=== PATIENT | female | born 2000 | race Caucasian/White ===

== ENCOUNTER → 2020-02-01 16:12 | Outpatient (BNVA) | payer BC, SELFPAY | PROVIDERS: Family Provider Family Medicine; Visit Provider Nurse Practitioner | DX: R10.9 Unspecified abdominal pain (principal) | CPT/HCPCS: 81000 ==

== ENCOUNTER → 2020-04-12 16:16 | Outpatient (BNVA) | payer BC, SELFPAY | PROVIDERS: Family Provider Family Medicine; Visit Provider Nurse Practitioner Women's Health | DX: Z11.3 Encounter for screening for infections with a predominantly sexual mode of transmission (principal); N76.0 Acute vaginitis; B96.89 Other specified bacterial agents as the cause of diseases classified elsewhere | CPT/HCPCS: 87491; 87591; 87661 ==

== ENCOUNTER 2021-05-25 14:14 | Emergency (ER) | payer BC, SELFPAY ==
[2021-05-25 15:47] VITALS: BP 128/75; PULSE 84; RESP 16; TEMP 36.9; O2SAT 100; BMI 18.8
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
[2021-05-25 16:54] VITALS: BP 110/65; PULSE 87; RESP 14; O2SAT 98
--- NOTE | 2021-05-25 17:04 | PC.NURSE ---
REVIEWED DISCHARGE INSTRUCTIONS WITH PATIENT, SHE VERBALIZES UNDERSTANDING OF ALL INSTRUCTIONS AND NEED FOR FOLLOW UP, PATIENT AMBULATED FROM THE ED
== END 2021-05-25 17:05 | disposition home or self-care (01) ==
PROVIDERS: Emergency Provider Physician Assistant
DX: S16.1XXA Strain of muscle, fascia and tendon at neck level, initial encounter (principal); F17.290 Nicotine dependence, other tobacco product, uncomplicated; V89.2XXA Person injured in unspecified motor-vehicle accident, traffic, initial encounter
CPT/HCPCS: 72040; 72072; 99282

== ENCOUNTER 2023-02-17 20:54 | Inpatient (IN) | payer BC, MEDICAID, SELFPAY ==
[2023-02-17] VITALS (11 sets, daily range): BP systolic 105–127; BP diastolic 63–69; PULSE 71–99; RESP 15; TEMP 36.6; BMI 25.3
[2023-02-17 21:30] LABS: Basophils % 0.3 %; Eosinophils # 0.1 10^3/uL (0.0-0.8); Eosinophils % 0.6 %; Hematocrit 36.1 % (36-47); Lymphocytes % 17.6 %; Mean Corpuscular HGB Conc 31.6 g/dL (30-55); Mean Corpuscular Volume 82.4 fl (85-98); Mean Platelet Volume 10.2 fL (7.4-10.4); Neutrophils # 8.14 10^3/uL (1.8-7.7); Nucleated Red Blood Cells % 0 %; Platelet Count 350 10^3/cmm (157-399); Red Blood Count 4.38 10^6/uL (3.85-5.65); White Blood Count 11.46 10^3/uL (3.29-11.43)
[2023-02-17] MEDS: miSOPROStol 100 mcg tablet 25 MCG VAGINAL (21:54)
[2023-02-18] VITALS (51 sets, daily range): BP systolic 92–175; BP diastolic 55–90; PULSE 57–148; RESP 14–18; TEMP 36.3–36.9; O2SAT 89–100
[2023-02-18] MEDS: lactated ringers 1,000 ML 999 ML IV ×2 (01:20→02:21)
--- NOTE | 2023-02-18 02:25 | ANES.PREANE2 ---
Pre-Anesthetic Assessment Height/Weight: Height 1.6 m Weight 64.864 kg Temp Pulse Resp BP O2 Del Method 97.5 F L 87 15 105/56 Room Air 02/18/23 02:01 02/18/23 01:54 02/17/23 20:55 02/18/23 01:54 02/17/23 20:57 Preop Diagnosis: labor epidural Familial anesthetic complications: none Was Beta Gisele taken within 24 hours: N/A Was Clonidine taken within 24 hours: N/A Last Intake: 20:40 Social No alcohol and No tobacco Exam alert, oriented x 3, clear to auscultation bilaterally and regular rate & rhythm Airway Submandibular: within normal limits Cervical ROM: within normal limits Mallampati: Class II Dentition: full Pulmonary None reported CV/HEM None reported None reported Hepatic None reported GI None reported Metabolic None reported Musc/skel Lower Back Pain and Scoliosis Neuropsych None reported Anesthetic Plan ASA status: 2 Anesthesia: Regional (specify below) (epidural) Risk of > 500 ml blood loss (7ml/kg in children): No Medications/Allergies Home Medications Medication Instructions Recorded Confirmed Last Taken Type metronidazole 500 mg tablet 500 mg PO BID #14 tabs 04/12/20 04/12/20 Unknown Rx Allergies Allergy/AdvReac Type Severity Reaction Status Date / Time No Known Allergies Allergy Verified 04/12/20 14:58 Current Medications Generic Name Dose Route Start Last Admin Trade Name Freq PRN Reason Stop Dose Admin Lactated Ringer's 1,000 mls @ 999 mls/hr 02/18/23 01:10 02/18/23 02:21 Lactated Ringers IV 999 mls/hr .Q1H1M PRN Administration See label comments [facility] Anesthesia Medical History (Updated 06/02/21 @ 00:00 by LEILA Schwartz) No pertinent past medical history neghx: htn,dm,thyroid,dvt/pe Surgical History (Updated 04/12/20 @ 16:09 by Stephanie Sheppard APN, ARIADNA) No pertinent past surgical history Family History Family/Other Ovarian cancer Maternal Great Grandmother---dx age unknown Father Hypertension Denies family history of Colon cancer Diabetes Heart disease Hypercholesteremia Breast cancer Uterine cancer Thyroid disease Stroke Social History Additional social history: - Tobacco use: currently vapes Alcohol use: socially- once per week Drug use: denies Female Reproductive History : 1 Data Anesthesia 02/17/23 21:15 Short CBC 02/17/23 Range/Units 21:15 WBC 11.46 H (3.29-11.43) 10^3/uL Hgb 11.40 (11.27-16.99) g/dL Hct 36.1 (36-47) % MCV 82.4 L (85-98) fl Plt Count 350 (157-399) 10^3/cmm Neut % (Auto) 71.0 % Neut # (Auto) 8.14 H (1.8-7.7) 10^3/uL Blood Bank 02/17/23 21:15 Blood Type B Positive Rho(D) Type Positive Antibody Screen Negative Cardiac Studies: No Data to Display
[2023-02-18] MEDS: ROPivacaine syringe 100 MG/50 ML SYRINGE 10 MG EPIDURAL (02:50)
--- NOTE | 2023-02-18 03:02 | ANES.PROC ---
Anesthesia Procedures Procedure/Date: 02/18/23 Epidural: Time Out Performed: Yes Consents Signed: Procedure Consent and NPO Consent Consent: requested by attending/covering physician, from patient, risks and benefits reviewed, patient agrees to proceed and emergency procedure Lumbar Level: L3-L4 Epidural position: sitting Epidural procedure: sterile prep of area (betadine), 1% lidocaine to numb the area (3ml), 18 g needle, neg for paresthesia, test dose given, 1.5% xylocaine 1:200k epi (3ml/2ml), 0.2% Ropivacaine bolus ml (5ml), placed PCEA, no systemic response, sterile dressing applied, L.U.D. no apparent complications and 0.2% Ropiavacaine @ mls/hr (10ml/hr)
[2023-02-18] MEDS: dextrose 5%-lactated ringers 1,000 ML 125 ML IV (03:24)
[2023-02-18] MEDS: oxytocin 30 UNIT/500 ML BAG 600 UNIT IV (04:54)
--- NOTE | 2023-02-18 05:17 | PM.OPHPUD ---
Labor & Delivery H&P Update Date of Procedure: February 18, 2023 Date H&P Performed: 02/14/23 Admission Diagnosis: IUP at 40 weeks 4 days gestation Preop diagnosis: labor Planned procedure: Induction of labor and delivery
--- NOTE | 2023-02-18 05:17 | PM.DELIVERY ---
Delivery Note: Date of delivery: February 18, 2023 Pre-Delivery Course: The patient had routine care at [facility]. There were no complications during the . labs: Blood type B+, antibody negative, rubella immune, hepatitis B nonreactive, hepatitis C nonreactive, HIV nonreactive, GC chlamydia negative, RPR nonreactive, UDS negative, she passed her glucose tolerance test, GBS negative. Delivery: This is a 23-year-old at 40 weeks 4 days gestation who was admitted for a postdate induction. Her cervix was not favorable and she was started on Cytotec. The 1 dose of Cytotec put her into active labor. She had spontaneous rupture of membranes with clear fluid. Rupture of membranes was approximately 4 hours prior to delivery. She received an epidural for pain management. She had a normal spontaneous vaginal delivery of a viable female infant weight 3270 g, 7 pounds 3 ounces, Apgars 8 and 9 over an intact perineum. The was suctioned at delivery and placed on the mother's chest. The cord was clamped and cut. There was a very small second-degree perineal laceration that was sutured using 3-0 chromic. There was an irregular second-degree labial laceration on the right that was sutured using 3-0 chromic. Mother and were doing well after delivery. Estimated blood loss 200 mL History History History 0 Term Miscarriages/Ectopic Living Children Coding Level of Care Code Acute Code for Chg Fwd Diagnoses
[2023-02-18] MEDS: benzocaine-menthol 78 gm Canister 1 SPRAY TOPICAL (06:39)
[2023-02-18] MEDS: lanolin oint 7 gm 1 APPLIC TOPICAL (06:39)
--- NOTE | 2023-02-18 07:00 | PC.NURSE ---
This nurse observing and precepting all patient care and medication administration performed by SN Awilda
[2023-02-18] MEDS: ibuprofen 800 mg tablet PO ×3 (08:26→20:45)
[2023-02-18] MEDS: prenatal vitamin Capsule 1 CAP PO (08:26)
[2023-02-18] MEDS: docusate sodium 100 mg Capsule PO ×2 (08:26→17:39)
[2023-02-18 15:58] LABS: Hematocrit 34.7 % (36-47); Mean Corpuscular HGB Conc 30.8 g/dL (30-55); Mean Corpuscular Hemoglobin 25.7 pg (27-33); Mean Corpuscular Volume 83.2 fl (85-98); Mean Platelet Volume 10.5 fL (7.4-10.4); Platelet Count 320 10^3/cmm (157-399); Red Blood Count 4.17 10^6/uL (3.85-5.65); Red Cell Distribution Width 15.3 % (12.1-15.1); White Blood Count 16.24 10^3/uL (3.29-11.43)
[2023-02-19 05:00] VITALS: BP 105/67; PULSE 76; RESP 18; TEMP 36.9; O2SAT 98
--- NOTE | 2023-02-19 08:00 | ANE.PACU2 ---
Inpatient post-anesthesia follow up: Airway intact: Yes Vital signs: Temperature 98.2 F Pulse Rate 82 Respiratory Rate 16 Blood Pressure 103/72 Pulse Oximetry 98 Oxygen Delivery Me thod Room Air Oxygen Flow Rate Fraction of Inspir ed Oxygen Hydration adequate: Yes Nausea and vomiting: No Pain level: 1 Mental status: Baseline
[2023-02-19] MEDS: docusate sodium 100 mg Capsule PO (09:09)
[2023-02-19] MEDS: prenatal vitamin Capsule 1 CAP PO (09:09)
[2023-02-19] MEDS: ibuprofen 800 mg tablet PO (09:09)
--- NOTE | 2023-02-19 13:06 | PM.DCS ---
Discharge Providers Date of Admission: 02/17/23 20:54 Date of Discharge: February 19, 2023 Attending Provider at Admission: Janae Walker MD Attending Provider at Discharge: Janae Walker MD Primary Care Provider: Janae Walker MD Reason for Visit Reason for Visit: Induction of Labor Hospital Course Hospital Course This is a 23-year-old G1 now P1 who was admitted for postdate induction at 40 weeks 4 days gestation. She delivered a viable female at 40 weeks 5 days gestation via normal spontaneous vaginal delivery. She has done well . She is ambulating, tolerating a regular diet, has average vaginal bleeding and is comfortable with discharge home Physical Exam Narrative: Alert and oriented, sitting up in bed, heart regular rate and rhythm, lungs clear to auscultation, abdomen is soft and nontender, fundus is firm and U -3, extremities have no calf tenderness and trace edema Discharge Data Studies Completed and Pending Laboratory Results WBC 16.24 10^3/uL (3.29-11.43) H 02/18/23 15:20 RBC 4.17 10^6/uL (3.85-5.65) 02/18/23 15:20 Hgb 10.70 g/dL (11.27-16.99) L 02/18/23 15:20 Hct 34.7 % (36-47) L 02/18/23 15:20 MCV 83.2 fl (85-98) L 02/18/23 15:20 MCH 25.7 pg (27-33) L 02/18/23 15:20 MCHC 30.8 g/dL (30-55) 02/18/23 15:20 RDW 15.3 % (12.1-15.1) H 02/18/23 15:20 Plt Count 320 10^3/cmm (157-399) 02/18/23 15:20 MPV 10.5 fL (7.4-10.4) H 02/18/23 15:20 Neut % (Auto) 71.0 % 02/17/23 21:15 Lymph % (Auto) 17.6 % 02/17/23 21:15 [place] % (Auto) 9.0 % 02/17/23 21:15 Eos % (Auto) 0.6 % 02/17/23 21:15 Baso % (Auto) 0.3 % 02/17/23 21:15 Neut # (Auto) 8.14 10^3/uL (1.8-7.7) H 02/17/23 21:15 Lymph # (Auto) 2.0 10^3/uL (0.8-4.8) 02/17/23 21:15 [place] # (Auto) 1.0 10^3/uL (0.2-0.9) H 02/17/23 21:15 Eos # (Auto) 0.1 10^3/uL (0.0-0.8) 02/17/23 21:15 Baso # (Auto) 0.0 10^3/uL (0.0-0.1) 02/17/23 21:15 Nucleated RBC % (auto) 0 % 02/17/23 21:15 Nucleated RBCs # 0.0 /100WBC 02/17/23 21:15 Blood Type B Positive 02/17/23 21:15 Rho(D) Type Positive 02/17/23 21:15 Antibody Screen Negative 02/17/23 21:15 Vitals Last Vital Signs Temp 98.4 F 02/19/23 05:00 Pulse 76 02/19/23 05:00 Resp 18 02/19/23 05:00 BP 105/67 02/19/23 05:00 Pulse Ox 98 02/19/23 05:00 O2 Del Method Room Air 02/19/23 05:00 Discharge Plan Discharge Patient Disposition: Home Condition: Stable Prescriptions: Discontinued metronidazole 500 mg tablet 500 mg PO BID Qty: 14 0RF Discharge Orders: Discharge Order (Routine); Ordered 02/19/23 Ordered By: Janae Walker Referrals: Janae Walker MD [Primary Care Provider] - 1 month Discharge Diet: Usual diet Discharge Activity: Limit activity as instructed Patient Instructions: Opioid Safety Activity Restrictions/Additional Instructions: nothing per vagina for 6 weeks Discharge Attestations Time Spent in Discharge Care*: less than 30 min Quality Metrics Clinical Quality Measures [ No reported AMI, CVA or VTE this stay] Coding Level of Care Code Acute Code for Chg Fwd Diagnoses
[2023-02-19 18:30] VITALS: BP 103/72; PULSE 82; RESP 16; TEMP 36.8; O2SAT 98
== END 2023-02-19 18:30 | disposition home or self-care (01) | DRG 807 ==
LOC: OPOB 02-18 07:10 → OBGYN 02-18 07:10
PROVIDERS: Admitting Provider Family Medicine; PCP Family Medicine; Visit Provider Family Medicine
DX: O48.0 Post-term pregnancy (principal); Z37.0 Single live birth; Z3A.40 40 weeks gestation of pregnancy; O70.1 Second degree perineal laceration during delivery
CPT/HCPCS: 36415; 59025; 59409; 85025; 85027; 86850; 86900; 98960; J2590; J2795; J7120; J7121

== ENCOUNTER 2025-02-01 17:10 | Outpatient (CLI) | payer BC, MEDICAID, SELFPAY ==
[2025-02-01 17:12] VITALS: RESP 16
[2025-02-01 17:18] VITALS: BP 121/65; PULSE 85
[2025-02-01 17:33] VITALS: BP 113/58; PULSE 78
[2025-02-01 17:48] VITALS: BP 118/69; PULSE 103
[2025-02-01 18:03] VITALS: BP 117/60; PULSE 84
[2025-02-01 18:06] VITALS: BP 117/84; PULSE 84; RESP 16
== END 2025-02-01 18:06 | disposition home or self-care (01) ==
LOC: OPOB 17:11 → OBGYN 17:11
PROVIDERS: PCP Family Medicine; Visit Provider Family Medicine
DX: O36.5990 Maternal care for other known or suspected poor fetal growth, unspecified trimester, not applicable or unspecified (principal); Z3A.00 Weeks of gestation of pregnancy not specified
CPT/HCPCS: 59025; 99211

== ENCOUNTER 2025-03-01 20:47 | Inpatient (IN) | payer BC, MEDICAID, SELFPAY ==
[2025-03-01] VITALS (49 sets, daily range): BP systolic 70–138; BP diastolic 36–83; PULSE 66–122; TEMP 36.7; O2SAT 95–100; BMI 24.4
[2025-03-01 21:05] LABS: Hematocrit 34.4 % (36-47); Hemoglobin 10.50 g/dL (11.27-16.99); Mean Corpuscular HGB Conc 30.5 g/dL (30-55); Mean Corpuscular Hemoglobin 21.8 pg (27-33); Mean Corpuscular Volume 71.5 fl (85-98); Nucleated Red Blood Cells % 0 %; Platelet Count 372 10^3/cmm (157-399); Red Blood Count 4.81 10^6/uL (3.85-5.65); White Blood Count 11.82 10^3/uL (3.29-11.43)
[2025-03-01] MEDS: ROPivacaine premix 200 MG/100 ML PREMIX 10 MG EPIDURAL (22:08)
--- NOTE | 2025-03-01 22:14 | ANES.PREANE2 ---
Pre-Anesthetic Assessment Height/Weight: Height 1.6 m Weight 62.142 kg Temp Pulse BP Pulse Ox O2 Del Method 98.1 F 110 H 90/60 98 Room Air 03/01/25 21:06 03/01/25 22:11 03/01/25 22:11 03/01/25 22:11 03/01/25 20:48 Epidural Familial anesthetic complications: none Was Beta Gisele taken within 24 hours: N/A Was Clonidine taken within 24 hours: N/A Exam alert, oriented x 3, clear to auscultation bilaterally and regular rate & rhythm Musc/el scoliosis Anesthetic Plan ASA status: 2 Anesthesia: Regional (specify below) Risk of > 500 ml blood loss (7ml/kg in children): Yes, adequate IV access and fluids planned Other Pertinent Information Discussed with patient she is far dilated and may not get much relief from epidural given proximity to second stage. She desired to continue with placement of epidural. Medications/Allergies Home Medications ?Medication ?Instructions ?Recorded ?Confirmed ?Last Taken ?Type ferrous sulfate 325 tab PO DAILY 03/01/25 03/01/25 2 Days Ago History ~02/27/25 pimecrolimus 1 % topical cream See Rx Instructions .Route 03/01/25 03/01/25 Unknown History .COMPLEX PRN eczema triamcinolone acetonide 0.1 % See Rx Instructions .Route 03/01/25 03/01/25 Unknown History topical ointment .COMPLEX PRN eczema Allergies Allergy/AdvReac Type Severity Reaction Status Date / Time No Known Allergies Allergy Verified 03/01/25 21:01 Current Medications Generic Name Dose Route Start Last Admin Trade Name Freq PRN Reason Stop Dose Admin Ropivacaine 200 mg in 100 mls @ 10 mls/hr 03/01/25 21:00 03/01/25 22:08 Naropin Premix EPIDURAL 10 mls/hr .Q10H BEBE Administration Sodium Chloride 1,000 mls @ 999 mls/hr 03/01/25 20:48 03/01/25 21:10 Sodium Chloride 0.9% IV 999 mls/hr .Q1H1M PRN Administration See label comments PFSH Anesthesia Medical History (Updated 06/02/21 @ 00:00 by LEILA Schwartz) No pertinent past medical history neghx: htn,dm,thyroid,dvt/pe Surgical History (Updated 04/12/20 @ 16:09 by Stephanie Sheppard APN, WHNP) No pertinent past surgical history Family History Family/Other Ovarian cancer Maternal Great Grandmother---dx age unknown Father Hypertension Denies family history of Colon cancer Diabetes Heart disease Hypercholesteremia Breast cancer Uterine cancer Thyroid disease Stroke Social History Smoking and tobacco/nicotine status: never used tobacco/nicotine Additional social history: - Tobacco use: currently vapes Alcohol use: socially- once per week Drug use: denies Female Reproductive History : 2 Data Anesthesia 03/01/25 20:55 Short CBC 03/01/25 Range/Units 20:55 WBC 11.82 H (3.29-11.43) 10^3/uL Hgb 10.50 L (11.27-16.99) g/dL Hct 34.4 L (36-47) % MCV 71.5 L (85-98) fl Plt Count 372 (157-399) 10^3/cmm Neut % (Auto) 78.8 % Neut # (Auto) 9.31 H (1.8-7.7) 10^3/uL Blood Bank 03/01/25 20:55 Blood Type B Positive Rho(D) Type Rh positive Antibody Screen Negative Anesthesia Procedures Epidural Time Out Performed: Yes Consents Signed: Procedure Consent Consent: requested by attending/covering physician, from patient, from other, risks and benefits reviewed and patient agrees to proceed Lumbar Level: L3-L4 Epidural position: sitting Epidural procedure: sterile prep of area, 1% lidocaine to numb the area, 18 g needle, negative for paresthesia passed, neg for paresthesia, test dose given, 1.5% xylocaine 1:200k epi (5), 0.2% Ropivacaine bolus ml (5), placed PCEA, no systemic response, sterile dressing applied, L.U.D. no apparent complications and 0.2% Ropiavacaine @ mls/hr Additional Comments: ABBY at 3.5 cm, threaded to 10 cm
[2025-03-02] VITALS (99 sets, daily range): BP systolic 80–181; BP diastolic 48–135; PULSE 64–111; RESP 16–18; TEMP 35.9–37; O2SAT 97–100; BMI 24.4
--- NOTE | 2025-03-02 01:22 | PM.MISC ---
Miscellaneous Note Note: Called to patient room due to complaints of pain. 100mcg fentanyl given via epidural. Negative aspiration for CSF and blood. Patient states some pain relief.
--- NOTE | 2025-03-02 02:59 | PM.OPHPUD ---
Labor & Delivery H&P Update Date of Procedure: March 02, 2025 Date H&P Performed: 02/16/25 Admission Diagnosis: IUP at 40 weeks gestation in active labor Primary indication for procedure: Expectant management of labor and delivery
--- NOTE | 2025-03-02 03:00 | PM.DELIVERY ---
Delivery Note: Date of delivery: March 02, 2025 Procedure: Normal spontaneous vaginal delivery Delivering Physician: Janae Walker MD Estimated blood loss (mL): 275 Pre-Delivery Course: The patient had routine care at [facility]. There were no complications during the though the patient had extreme eczema flare and was seen by dermatology. labs blood type B+ antibody negative, hepatitis B nonreactive, hepatitis C nonreactive, HIV nonreactive, rubella immune, GC negative, chlamydia positive with test of cure negative, RPR nonreactive, UDS negative, she passed her glucose tolerance test, she was GBS negative. Delivery: This is a 25-year-old G2, P1 at 40 weeks gestation who presented to the labor and delivery in active labor. She received an epidural for pain management and her labor progressed well on its own. When she was complete and +1 she underwent artificial rupture of membranes with clear fluid. She only had to push through 2-3 contractions to have a normal spontaneous vaginal delivery of a viable male infant weight 3420 g, Apgars 8 and 9 over an intact perineum. The infant was suctioned at delivery and placed on the mother's chest. The cord was clamped and cut. The placenta was delivered grossly intact and normal to inspection. There was a first-degree laceration that was sutured using 3-0 chromic. Mother and infant were doing well after delivery. History History History 2 Term 2 Miscarriages/Ectopic Living Children 2 A&P Assessment and plan 1. Normal spontaneous vaginal delivery: PDMP PDMP Reviewed: Not Reviewed Coding Level of Care Code Acute Code for Chg Fwd Diagnoses Normal spontaneous vaginal delivery O80
[2025-03-02] MEDS: benzocaine-menthol 78 gm Canister 1 SPRAY TOPICAL (03:57)
[2025-03-02] MEDS: PRENATAL VIT NO.130/IRON/FOLIC 1 EACH TABLET PO (03:58)
[2025-03-02 17:38] LABS: Hematocrit 31.0 % (36-47); Hemoglobin 9.40 g/dL (11.27-16.99); Mean Corpuscular HGB Conc 30.3 g/dL (30-55); Mean Corpuscular Hemoglobin 22.6 pg (27-33); Mean Corpuscular Volume 74.5 fl (85-98); Platelet Count 383 10^3/cmm (157-399); Red Blood Count 4.16 10^6/uL (3.85-5.65); White Blood Count 14.16 10^3/uL (3.29-11.43)
[2025-03-03 03:30] VITALS: BP 106/70; PULSE 80; RESP 15; TEMP 36.8; O2SAT 99
[2025-03-03] MEDS: PRENATAL VIT NO.130/IRON/FOLIC 1 EACH TABLET PO (05:08)
[2025-03-03 10:00] VITALS: BP 104/53; PULSE 70; RESP 16; TEMP 36.5; O2SAT 99
--- NOTE | 2025-03-03 12:46 | P.PN_ITS ---
Subjective 2 Subjective: She is doing well . She has had no significant cramping. Her bleeding is not very heavy. She is ambulating and tolerating a regular diet Vitals/I&O/Wt Last Vital Signs Temp 97.7 F 03/03/25 10:00 Pulse 70 03/03/25 10:00 Resp 16 03/03/25 10:00 BP 104/53 03/03/25 10:00 Pulse Ox 99 03/03/25 10:00 O2 Del Method Room Air 03/03/25 10:00 Weight last 48 hrs Weight 62.596 kg Weight 62.142 kg Weight 62.596 kg Physical Exam 2 Narrative: Alert and oriented, heart regular rate and rhythm, lungs clear to auscultation bilaterally, abdomen is soft and nontender, fundus is firm and U- 3, extremities have trace edema no calf tenderness Urinary Catheter Management: Rivas: Cath Placed During This Visit: yes, but has since been removed by the nurse Reason for Continuing Indwelling Catheter: Decision to DC Catheter Urinary Catheter Date of Insertion: 03/01/25 Urinary Catheter Time of Insertion: 22:40 Date Urinary Catheter Removed: 03/02/25 Time Urinary Catheter Discontinued: 02:15 Data 03/02/25 16:05 A&P Assessment and plan 1. Normal spontaneous vaginal delivery: Infant is being kept until tomorrow so we will keep mom inpatient for 1 more night. PDMP PDMP Reviewed: Not Reviewed Attestations 2 Medical Necessity Statement*: Routine care Coding Level of Care Code Acute Code for Chg Fwd Diagnoses Normal spontaneous vaginal delivery O80
[2025-03-03 16:10] VITALS: BP 107/70; PULSE 81; RESP 16; TEMP 36.5; O2SAT 97
[2025-03-03 22:10] VITALS: BP 107/70; PULSE 17
[2025-03-04 06:38] VITALS: PULSE 140; RESP 55; TEMP 36.7
[2025-03-04] MEDS: PRENATAL VIT NO.130/IRON/FOLIC 1 EACH TABLET PO (06:38)
[2025-03-04 06:40] VITALS: BP 99/63; PULSE 59; RESP 17; O2SAT 99
[2025-03-04 09:00] VITALS: BP 99/63; PULSE 80; RESP 16; TEMP 36.6
--- NOTE | 2025-03-04 12:26 | P.DS_ITS ---
Discharge Providers Date of Admission: 03/01/25 20:47 Date of Discharge: March 04, 2025 Attending Provider at Admission: Janae Walker MD Attending Provider at Discharge: Janae Walker MD Primary Care Provider: Janae Walker MD Diagnoses at Discharge Discharge Diagnosis 1. Normal spontaneous vaginal delivery: Reason for Visit Reason for Visit: Contractions Hospital Course Hospital Course This is a 25-year-old G2 now P2 who had a normal spontaneous vaginal delivery of a viable male infant. Mother and infant have done well after delivery. Physical Exam Narrative: Alert and oriented, sitting up in bed with the , heart regular rate and rhythm, lungs clear to auscultation bilaterally, abdomen is soft and nontender, fundus is firm, extremities have no calf tenderness and no edema. Urinary Catheter Management: Rivas: Cath Placed During This Visit: yes, but has since been removed by the nurse Reason for Continuing Indwelling Catheter: Decision to DC Catheter Urinary Catheter Date of Insertion: 03/01/25 Urinary Catheter Time of Insertion: 22:40 Date Urinary Catheter Removed: 03/02/25 Time Urinary Catheter Discontinued: 02:15 Discharge Data Studies Completed and Pending Laboratory Results WBC 14.16 10^3/uL (3.29-11.43) H 03/02/25 16:05 RBC 4.16 10^6/uL (3.85-5.65) 03/02/25 16:05 Hgb 9.40 g/dL (11.27-16.99) L 03/02/25 16:05 Hct 31.0 % (36-47) L 03/02/25 16:05 MCV 74.5 fl (85-98) L 03/02/25 16:05 MCH 22.6 pg (27-33) L 03/02/25 16:05 MCHC 30.3 g/dL (30-55) 03/02/25 16:05 RDW 22.0 % (12.1-15.1) H 03/02/25 16:05 Plt Count 383 10^3/cmm (157-399) 03/02/25 16:05 MPV 12.0 fL (7.4-10.4) H 03/02/25 16:05 Neut % (Auto) 78.8 % 03/01/25 20:55 Lymph % (Auto) 12.4 % 03/01/25 20:55 [place] % (Auto) 7.1 % 03/01/25 20:55 Eos % (Auto) 0.6 % 03/01/25 20:55 Baso % (Auto) 0.3 % 03/01/25 20:55 Neut # (Auto) 9.31 10^3/uL (1.8-7.7) H 03/01/25 20:55 Lymph # (Auto) 1.5 10^3/uL (0.8-4.8) 03/01/25 20:55 [place] # (Auto) 0.8 10^3/uL (0.2-0.9) 03/01/25 20:55 Eos # (Auto) 0.1 10^3/uL (0.0-0.8) 03/01/25 20:55 Baso # (Auto) 0.0 10^3/uL (0.0-0.1) 03/01/25 20:55 Nucleated RBC % (auto) 0 % 03/01/25 20:55 Nucleated RBCs # 0.0 /100WBC 03/01/25 20:55 Blood Type B Positive 03/01/25 20:55 Rho(D) Type Rh positive 03/01/25 20:55 Antibody Screen Negative 03/01/25 20:55 Vitals Last Vital Signs Temp 97.9 F 03/04/25 09:00 Pulse 80 03/04/25 09:00 Resp 16 03/04/25 09:00 BP 99/63 03/04/25 09:00 Pulse Ox 99 03/04/25 06:40 O2 Del Method Room Air 03/04/25 06:40 Discharge Plan Discharge Patient Disposition: Home Condition: Stable Prescriptions: Continued pimecrolimus 1 % cream See Rx Instructions .ROUTE .COMPLEX PRN (Reason: eczema) Rx Instructions: apply to irritated areas on face and neck twice daily as needed triamcinolone acetonide 0.1 % ointment See Rx Instructions .ROUTE .COMPLEX PRN (Reason: eczema) Rx Instructions: Apply to affected area twice a day as needed ferrous sulfate tablet 325 tab PO DAILY Discharge Order = DC NOW: Discharge Order (Routine); Ordered 03/04/25 Ordered By: Janae Walker Referrals: Janae Walker MD [Primary Care Provider, [facility]] - 03/24/25 3:00 pm Discharge Diet: Usual diet Discharge Activity: Limit activity as instructed Patient Instructions: Depression (DC), Bleeding (DC), Preeclampsia and Eclampsia After Delivery (GEN), OB Discharge Report, OB Food/Drug Interaction Guide, OB Care at Home, Opioid Safety, OB Home Care, OB Vaginal Deliveries, Patient Portal & Dario Instructions Activity Restrictions/Additional Instructions: Nothing per vagina for 6 weeks Discharge Attestations Time Spent in Discharge Care*: less than 30 min Quality Metrics Clinical Quality Measures [ No reported AMI, CVA or VTE this stay] Coding Level of Care Code Acute Code for Chg Fwd Diagnoses Normal spontaneous vaginal delivery O80
--- NOTE | 2025-03-04 12:59 | ANE.PACU2 ---
Inpatient post-anesthesia follow up: Airway intact: Yes Vital signs: Temperature 97.9 F Pulse Rate 80 Respiratory Rate 16 Blood Pressure 99/63 Pulse Oximetry 99 Oxygen Delivery Me thod Room Air Oxygen Flow Rate Fraction of Inspir ed Oxygen Hydration adequate: Yes Nausea and vomiting: No Pain level: 1 Mental status: Baseline Epidural Start/End: Epidural Start Date: 03/01/25 Epidural Start Time: 21:56 Epidural End Date: 03/02/25 Epidural End Time: 04:10
[2025-03-04 14:15] VITALS: BP 108/72; PULSE 81; RESP 18; TEMP 36.8
== END 2025-03-04 14:35 | disposition home or self-care (01) | DRG 560 ==
LOC: OPOB 20:47 → OBGYN 20:47
PROVIDERS: Admitting Provider Family Medicine; PCP Family Medicine; Visit Provider Family Medicine
DX: O70.0 First degree perineal laceration during delivery (principal); Z3A.40 40 weeks gestation of pregnancy; Z37.0 Single live birth
CPT/HCPCS: 36415; 51702; 59409; 85025; 85027; 86850; 86900; 96374; 99211; J2795; J3010; J7030; J7121; J9999